=== PATIENT | male | born 1960 | race Caucasian/White ===

== ENCOUNTER 2016-10-11 12:19 | Inpatient (IN) | payer OTHER ==
[~2016-10-11] VITALS: Ht 180.3 cm; Wt 60.3 kg
--- NOTE | ~2016-10-11 | EKG ---
[facility] [place] [address] ELECTROCARDIOGRAM REPORT Name: HORTENCIA VARELA Room #: [facility].#: [id number] Admission: Attend Phys: Discharge: Date of : 58 Report #: [id number] THIS REPORT FOR: //name// [facility] ED Test Date: 2016-10-11 Test Time: 12:30:13 Pat Name: HORTENCIA VARELA Department: Room: Gender: M [employer] Supervisor: CASSIUS : 1960 Requested By: Juan Carlos Tiwari Order Number: [id number] MD: Measurements Intervals [place] Rate: 119 P: 82 IA: 165 QRS: 79 QRSD: 98 T: 79 QT: 320 QTc: 451 Interpretive Statements Sinus tachycardia Atrial premature complex Probable left atrial enlargement Anteroseptal infarct, age indeterminate Baseline wander in lead(s) V3 No previous ECG available for comparison [email or web address] By: 1230 1230 Lorna Rothman MD /EPI
[2016-10-11 12:23] VITALS: BP 131/90
[2016-10-11] MEDS ORDERED: NORTRIPTYLINE H25 M3 PO (12:36)
[2016-10-11 12:43] LABS: BASOPHILS 0.6 % (0.0-2.0); EOSINOPHILS 2.5 % (0.0-3.0); HEMATOCRIT 47.1 % (42.0-52.0); HEMOGLOBIN 15.1 gm/dL (14.0-18.0); LYMPHOCYTES 31.9 % (24.0-44.0); MCH 29.1 pg (26.0-34.0); MONOCYTES 6.8 % (1.0-8.0); PLATELET COUNT 203 thou/uL (150-400); POLYS 58.2 % (36.0-66.0); RBC 5.18 mil/uL (4.50-6.00); RDW 13.2 % (10.5-14.5); WBC 10.2 thou/uL (4.0-11.0)
[2016-10-11 12:45] LABS: MANUAL DIFF NO
[2016-10-11 12:51] LABS: ANION GAP 16 mmol/L (7-16); BUN 13 mg/dL (7-18); CALCIUM 9.4 mg/dL (8.5-10.1); CHLORIDE 100 mmol/L (98-107); CO2 22 mmol/L (21-32); CREATININE 1.3 mg/dL (0.7-1.3); GLUCOSE 145 mg/dL (74-106); POTASSIUM 3.8 mmol/L (3.5-5.1); SODIUM 138 mmol/L (136-145)
[2016-10-11 12:54] LABS: SALICYLATE < 2.8 mg/dL (2.8-20.0)
[2016-10-11 12:55] LABS: ACETAMINOPHEN < 2 ug/mL (10-30)
[2016-10-11 12:56] LABS: PROTIME 9.5 Seconds (9.3-11.4)
[2016-10-11 13:00] LABS: ALBUMIN 3.9 g/dL (3.4-5.0); ALKALINE PHOSPHATASE 116 U/L (46-116); SGOT 27 U/L (15-37); SGPT 43 U/L (30-65); TOTAL BILIRUBIN 0.5 mg/dL (<0.1-1.0); TOTAL PROTEIN 7.2 g/dL (6.4-8.2); TROPONIN-I < 0.04 ng/mL (<0.04-0.07)
[2016-10-11 13:55] LABS: URINE BILIRUBIN NEGATIVE (Negative); URINE BLOOD 1+ (Negative); URINE COLOR YELLOW; URINE GLUCOSE-RANDOM* NEGATIVE (Negative); URINE KETONES NEGATIVE (Negative); URINE NITRITE NEGATIVE (Negative); URINE PROTEIN (DIPSTICK) 1+ (Negative); URINE SPECIFIC GRAVITY >= 1.030 (1.003-1.035); URINE UROBILINOGEN 0.2 E.U./dl (0.2-1.0)
[2016-10-11 14:13] LABS: CASTS None Seen /LPF (None Seen); CRYSTALS None Seen /LPF (None Seen); SQUAMOUS None Seen /LPF (0-3)
[2016-10-11 14:14] LABS: BACTERIA 1-9 Few /HPF (None Seen); URINE RBC 0-2 Rare /HPF (0-2); URINE WBC 0-5 Rare /HPF (0-5)
[2016-10-11 14:20] LABS: AMP/METHAMP Negative (Negative); BARBITURATES Negative (Negative); BENZODIAZEPINES Negative (Negative); COCAINE Negative (Negative); METHADONE Negative (Negative); OPIATES Negative (Negative); PCP Negative (Negative); THC Negative (Negative)
[2016-10-11 15:41] VITALS: BP 132/93
[2016-10-11 16:13] VITALS: BP 126/84
[2016-10-11 16:35] VITALS: BP 131/88
[2016-10-11 16:43] LABS: TSH 2.776 uIU/mL (0.358-3.740)
[2016-10-11 19:08] VITALS: BP 121/47
[2016-10-11 23:44] VITALS: BP 113/79
[2016-10-12 03:11] LABS: GLYCOHEMOGLOBIN (HGB A1C) 5.2 % (4.8-5.6)
[2016-10-12 05:29] VITALS: BP 104/80
[2016-10-12 06:28] LABS: CHOLESTEROL 105 mg/dL (<200); HDL CHOLESTEROL 55 mg/dL (>40); LDL CHOLESTEROL 40 mg/dL (<100); TC:HDL 1.9 Ratio (Not establshd); TRIGLYCERIDE 50 mg/dL (<150); VLDL 10 mg/dL (<40)
[2016-10-12 06:32] LABS: SERUM ASSESSMENT Clear
[2016-10-12 07:57] VITALS: BP 114/78
[2016-10-12 11:35] VITALS: BP 123/78
[2016-10-12] MEDS ORDERED: ATORVASTATIN CA40 MG PO (14:41)
[2016-10-12] MEDS ORDERED: LIPITOR 20 MG T20 M1 PO (14:41)
[2016-10-12] MEDS ORDERED: KEPPRA 500 MG500 M1 PO (14:41)
[2016-10-12] MEDS ORDERED: ASPIR 8181 MG PO (14:41)
[2016-10-12 15:21] VITALS: BP 123/78
== END 2016-10-12 18:14 | disposition home or self-care (01) | DRG 101 ==
LOC: ER 12:19 → EROBS 14:57 → 4W 14:57
PROVIDERS: Nurse Practitioner; Physician Assistant
DX: R56.9 Unspecified convulsions (principal); F10.10 Alcohol abuse, uncomplicated; E78.5 Hyperlipidemia, unspecified; F17.210 Nicotine dependence, cigarettes, uncomplicated; Y90.0 Blood alcohol level of less than 20 mg/100 ml; I69.322 Dysarthria following cerebral infarction; I69.320 Aphasia following cerebral infarction; Z71.6 Tobacco abuse counseling
CPT/HCPCS: 10045